=== PATIENT | female | born 1980 | race Two or more races ===

== ENCOUNTER 2024-04-09 10:30 | Emergency (ER) | payer MEDICARE, MEDICAID ==
[~2024-04-09] VITALS: Ht 162.6 cm; Wt 90.0 kg
[2024-04-09 11:47] LABS: Basophils # (auto) 0 10 ^3/uL (0-0.2); Basophils % (auto) 0.3 % (0.0-2.0); Eosinophils # (auto) 0.1 10 ^3/uL (0-0.8); Hematocrit 37.2 % (36.0-46.0); Hemoglobin 12.4 g/dL (12.2-16.2); Lymphocytes # (auto) 1.5 10 ^3/uL (0.4-5.4); Lymphocytes % (auto) 26.7 % (10.0-50.0); Mean Corpuscular Hemoglobin 28.2 pg (28.0-32.0); Mean Corpuscular Hgb Conc. 33.4 g/dL (32.0-36.0); Mean Corpuscular Volume 84.6 fL (80.0-100.0); Monocytes # (auto) 0.4 10 ^3/uL (0-1.3); Monocytes % (auto) 6.6 % (0.0-12.0); Neutrophils # (auto) 3.8 10 ^3/uL (1.6-8.6); Neutrophils % (auto) 65.4 % (37.0-80.0); Nucleated Red Blood Cells % 0.1 %; Platelet Count (auto) 200 10^3/uL (140-450); Red Cell Distribution Width 15.2 % (11.8-14.3); White Blood Cell 5.8 10^3/uL (4.4-10.8)
[2024-04-09 12:06] LABS: Alanine Aminotransferase 27 U/L (7-40); Albumin 4.2 g/dL (3.2-4.8); Alkaline Phosphatase 87 U/L (46-116); Anion Gap 5 (5-15); Aspartate Aminotransferase 17 U/L (13-40); BUN/Creatinine Ratio 14.1 (10.0-20.0); Bilirubin, Total 0.4 mg/dL (0.2-1.0); Blood Urea Nitrogen 10 mg/dL (9-23); Calcium 9.5 mg/dL (8.7-10.4); Carbon Dioxide 29 mmol/L (20-30); Chloride 102 mmol/L (98-107); Glucose 109 mg/dL (74-106); Potassium 3.6 mmol/L (3.5-5.1); Sodium 136 mmol/L (136-145); Total Protein 6.6 g/dL (5.7-8.2)
[2024-04-09 12:37] VITALS: PULSE 73; O2SAT 94
[2024-04-09 14:35] LABS: COVID19 ANTIGEN SOFIA FIA NEGATIVE (NEGATIVE)
[2024-04-09] MEDS: ALBUTEROL SULF 2.5 MG/0.5ML(0.5%) NEB SOLN NEB ONE (15:22)
[2024-04-09] MEDS ORDERED: ALBUAER3 IN (16:48)
[2024-04-09 17:05] VITALS: BP 100/51; PULSE 87; RESP 18; TEMP 98.4; O2SAT 96
== END 2024-04-09 17:45 | disposition home or self-care (01) ==
LOC: ER 10:30 → EDBD 10:30 → ER 17:44
DX: R06.00 Dyspnea, unspecified (principal); Z86.73 Personal history of transient ischemic attack (TIA), and cerebral infarction without residual deficits; Z20.822 Contact with and (suspected) exposure to COVID-19
CPT/HCPCS: 36415; 71045; 80053; 84484; 85025; 85379; 87426; 94640

== ENCOUNTER 2024-12-22 14:36 | Emergency (ER) | payer MEDICARE, MEDICAID ==
[~2024-12-22] VITALS: Ht 162.6 cm; Wt 102.0 kg
[~2024-12-22 14:36] MED LIST: ALBUAER3 IN
--- NOTE | 2024-12-22 16:16 | ED.PDOC ---
General HPI Comments 44 y/o F, with PMHx of HTN, DM, HLD, and CVA presents to the ED for CC of dysuria. Patient states, she has been dysuria with associated burning upon urination x1day. Patient denies nausea, vomiting, fever, or back pain. No other symptoms or modifying factors present at this time. Chief Complaint: Urinary Time Seen by MD: 16:00 Reviewed notes: Nurses Notes, Medications, Allergies Allergies: Coded Allergies: NO KNOWN ALLERGIES (Unverified , 12/22/24) Home Meds Active Scripts Albuterol Sulfate (VENTOLIN MDI) 90 Mcg Ih, 90 MCG IN Q6HP PRN for 7 Days, #1 MCG Prov:ANASTACIO LUCAS MD 04/09/24 Information Source: Patient Mode of Arrival: Ambulatory Severity: Moderate Inability to void: None Timing: Days Duration: Since onset Prehospital treatment: None Onset: Spontaneous Symptoms: Dysuria History of: None Location: None Modifying factors: None associated signs and symptoms: Dysuria Past Medical History PAST MEDICAL HISTORY: CVA, DM, High Lipids, HTN Surgical History: , Tubal Ligation 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: 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 all ROUGH PLANER TENDER Hx Family History Family History: Unknown Social History Smoker: Non-Smoker Alcohol: Denies ETOH Use Drugs: Denies Drug Use Lives In: Skilled Nursing Constitutional: denies: chills, diaphoresis, fatigue, fever, malaise, sweats, weakness, others EENTM: denies: blurred vision, double vision, ear bleeding, ear discharge, ear drainage, ear pain, ear ringing, eye pain, eye redness, hearing loss, mouth pain, mouth swelling, nasal discharge, nose bleeding, nose congestion, nose pain, photophobia, tearing, throat pain, throat swelling, voice changes, others Respiratory: denies: cough, hemoptysis, orthopnea, SOB at rest, shortness of breath, SOB with excertion, stridor, wheezing, others Cardiovascular: denies: chest pain, dizzy spells, diaphoresis, Dyspnea on exertion, edema, irregular heart beat, left arm pain, lightheadedness, palpitations, PND, syncope, others Gastrointestinal: denies: abdomen distended, abdominal pain, blood streaked bowels, constipated, diarrhea, dysphagia, difficulty swallowing, hematemesis, melena, nausea, poor appetite, poor fluid intake, rectal bleeding, rectal pain, vomiting, others Genitourinary: reports: burning, dysuria; denies: abnormal vagina bleeding, dyspareunia, flank pain, frequency, hematuria, incontinence, pain, , vagina discharge, urgency, others Neurological: denies: dizziness, fainting, headache, left sided numbness, left sided weakness, numbness, paresthesia, pre-existing deficit, right sided numbness, right sided weakness, seizure, speech problems, tingling, tremors, weakness, others Musculoskeletal: denies: back pain, gout, joint pain, joint swelling, muscle pain, muscle stiffness, neck pain, others Integumetry: denies: bruises, change in color, change in hair/nails, dryness, laceration, lesions, lumps, rash, wounds, others Allergic/Immunocompromised: denies: Difficulty Healing, Frequent Infections, Hives, Itching, others Hematologic/Lymphatic: denies: anemia, blood clots, easy bleeding, easy bruising, swollen glands, others Endocrine: denies: excessive hunger, excessive sweating, excessive thirst, excessive urination, flushing, intolerance to cold, intolerance to heat, unexplained weight gain, unexplained weight loss, others Psychiatric: denies: anxiety, bipolar disorder, depression, hopeless, panic disorder, schizophrenia, sleepless, suicidal, others All Other Systems: Reviewed and Negative Physical Exam General Appearance: No Apparent Distress HEENT: Normal ENT Inspection, Pharynx Normal, TMs Normal Neck: Full Range of Motion, Non-Tender, Normal, Normal Inspection Respiratory: Chest Non-Tender, Lungs Clear, No Accessory Muscle Use, No Respiratory Distress, Normal Breath Sounds Cardiovascular: No Edema, No JVD, No Murmur, No Gallop, Normal Peripheral Pulses, Regular Rate/Rhythm Breast Exam: Deferred Gastrointestinal: No Organomegaly, Non Tender, No Pulsatile Mass, Normal Bowel Sounds, Soft Genitalia: Deferred Pelvic: Deferred Rectal: Deferred Extremities: No calf tenderness, Normal capillary refill, Normal inspection, Normal range of motion, Non-tender, No pedal edema Musculoskeletal : Apperance: Normal Neurologic: Alert, forest engineer II-XII nml as Tested, No Motor Deficits, Normal Affect, Normal Mood, No Sensory Deficits Cerebellar Function: Normal Reflexes: Normal Skin: Dry, Normal Color, Warm Lymphatic: No Adenopathy Was a procedure done? Was a procedure done?: No Differential Diagnosis Kidney stone (Female): Strain, Urinary obstruction, Urolithiasis Urinary Problem (Female): UTI, Vaginitis X-Ray, Labs, Meds, VS Vital Signs Date Time Temp Pulse Resp B/P (MAP) Pulse Ox O2 Delivery O2 Flow Rate FiO2 12/22/24 17:44 98.5 81 16 128/49 (75) 96 98.5 12/22/24 15:07 Room Air 0 12/22/24 15:07 98.2 85 12 101/53 (69) 95 98.2 Lab Test 12/22/24 15:08 Range/Units Urine Color Light-yellow Yellow Urine Clarity Clear Clear Urine pH 6.5 5.0-9.0 Urine Specific [place] 1.020 1.001-1.035 Urine Protein Negative Negative Urine Ketones Negative Negative Urine Blood Negative Negative /uL Urine Nitrite Negative Negative Urine Bilirubin Negative Negative Urine Urobilinogen Normal Negative mg/dL Urine Leukocyte Esterase Negative Negative /uL Urine RBC <1 0 - 4 /hpf Urine Microscopic WBC 1 0-5 /HPF Urine Squamous Epithelial Cells Few <5 /hpf Urine Bacteria None seen None Seen /hpf Urine Yeast (Budding) Occasional None Seen /hpf Urine Glucose 4+ H Normal mg/dL Urine Opiates Screen Neg NEGATIVE Urine Fentanyl Screen Neg NEGATIVE Urine Barbiturates Screen Neg NEGATIVE Urine Phencyclidine Screen Neg NEGATIVE Urine Amphetamines Screen Neg NEGATIVE Urine Benzodiazepines Screen Neg NEGATIVE Urine Cocaine Screen Neg NEGATIVE Urine Cannabinoids Screen Neg NEGATIVE UDS is negative The urine test is negative for infection The patient is being discharged The patient will return to the emergency department's the condition worsens Time of 1ST Reevaluation: 16:30 Reevaluation 1ST: Unchanged Patient Education/Counseling: Diagnosis, Treatment, Prognosis, Need For Follow Up Family Education/Counseling: No Family Present Departure 1 Departure Time of Disposition: 18:17 Impression: Primary Impression: Dysuria Disposition: 01 HOME / SELF CARE / HOMELESS Condition: Fair Discharged With: Self Critical Care Note Critical Care Time?: No Stability Stability form required: No Heart Score Heart Score: Heart Score Response (Comments) Value History N/A 0 EKG N/A 0 Age N/A 0 Risk Factors N/A 0 Troponin N/A 0 Total 0 I personally scribed for SUSI HI MD ([email or web address]) on 12/22/24 at 16:16. Electronically submitted by Christy Parker ([email or web address]). I personally scribed for SUSI HI MD ([email or web address]) on 12/22/24 at 16:16. Electronically submitted by Christy Parker ([email or web address]). SUSI HI MD December 22, 2024 16:16
[2024-12-22 17:11] LABS: Urine Bacteria None Seen /hpf (None Seen)
[2024-12-22 17:29] LABS: Urine Blood Negative /uL (Negative); Urine Budding Yeast OCCASIONAL /hpf (None Seen); Urine Clarity Clear (Clear); Urine Color Light-Yellow (Yellow); Urine Protein, UAD Negative (Negative); Urine Squamous Epithelial Cell FEW /hpf (<5); Urine Urobilinogen Normal (Negative); Urine WBC 1 /HPF (0-5); Urine pH 6.5 (5.0-9.0)
[2024-12-22 17:34] LABS: Amphetamine Screen, Urine Neg (NEGATIVE); Barbiturate Scree,Urine Neg (NEGATIVE); Benzodiazephine Screen, Urine Neg (NEGATIVE); Cannabinoid Screen, Urine Neg (NEGATIVE); Cocaine Screen, Urine Neg (NEGATIVE); Opiate Scree,Urine Neg (NEGATIVE); Phencyclidine Screen, Urine Neg (NEGATIVE)
[2024-12-22 17:44] VITALS: BP 128/49; PULSE 81; RESP 16; TEMP 98.5; O2SAT 96
== END 2024-12-22 18:34 | disposition home or self-care (01) ==
LOC: ER 14:47
DX: R30.0 Dysuria (principal); I10 Essential (primary) hypertension; E11.9 Type 2 diabetes mellitus without complications; E78.5 Hyperlipidemia, unspecified; Z98.51 Tubal ligation status; Z98.890 Other specified postprocedural states; Z79.899 Other long term (current) drug therapy
CPT/HCPCS: 80307; 81001

== ENCOUNTER 2025-01-05 13:37 | Emergency (ER) | payer MEDICARE, MEDICAID ==
[~2025-01-05] VITALS: Ht 165.1 cm; Wt 70.0 kg
--- NOTE | 2025-01-05 14:20 | ED.PDOC ---
PRICING INTERN HPI Comments 44 y.o female with PMHx of fibroids, HTN, thyroids disease, DM, and CVA, pr esents to the ED via EMS for a chief complaint of vaginal bleeding associated with suprapubic/pelvic pain x 1 day. Patient reports going through a total of 3 pads, no blood clots noted and described pain as sharp, non radiating. Patient reports similar pain in the past in which she was diagnosed with fibroids then but since has not been seen by PCP or PRICING INTERN for follow up. Patient mentions no longer having a menstrual cycle. Patient denies any fever, chills, nausea or vomiting. Chief Complaint: Vaginal Bleed Time Seen by MD: 14:10 Reviewed Notes: Nurses Notes, Lift Truck Mechanic Notes, Medications, Allergies Allergies: Coded Allergies: NO KNOWN ALLERGIES (Unverified , 12/22/24) Home Meds Active Scripts Albuterol Sulfate (VENTOLIN MDI) 90 Mcg Ih, 90 MCG IN Q6HP PRN for 7 Days, #1 MCG Prov:ANASTACIO LUCAS MD 04/09/24 Information Source: Patient Mode of Arrival: EMS Timing: Days (1) Severity: Moderate Vaginal Discharge: None Vaginal Lesions: None Vaginal Mass: None Onset Of Mass/Bleeding: Spontaneous Sexual Activity: Neither Last Consensual [place]: None Control: None Symptoms of Possible : None Associated Signs and Symptoms: Vaginal Bleeding, Sharp Past Medical History PAST MEDICAL HISTORY: CVA, DM, High Lipids, HTN Surgical History: , Tubal Ligation CERAMIST History: Denies all CERAMIST Hx Family History Family History: Unknown Social History Smoker: Non-Smoker Alcohol: Denies ETOH Use Drugs: Denies Drug Use Lives In: Senior Care Constitutional: denies: chills, diaphoresis, fatigue, fever, malaise, sweats, weakness, others EENTM: denies: blurred vision, double vision, ear bleeding, ear discharge, ear drainage, ear pain, ear ringing, eye pain, eye redness, hearing loss, mouth pain, mouth swelling, nasal discharge, nose bleeding, nose congestion, nose pain, photophobia, tearing, throat pain, throat swelling, voice changes, others Respiratory: denies: cough, hemoptysis, orthopnea, SOB at rest, shortness of breath, SOB with excertion, stridor, wheezing, others Cardiovascular: denies: chest pain, dizzy spells, diaphoresis, Dyspnea on exertion, edema, irregular heart beat, left arm pain, lightheadedness, palpitations, PND, syncope, others Gastrointestinal: denies: abdomen distended, abdominal pain, blood streaked bowels, constipated, diarrhea, dysphagia, difficulty swallowing, hematemesis, melena, nausea, poor appetite, poor fluid intake, rectal bleeding, rectal pain, vomiting, others Genitourinary: reports: abnormal vagina bleeding, pain; denies: burning, dyspareunia, dysuria, flank pain, frequency, hematuria, incontinence, , vagina discharge, urgency, others Neurological: denies: dizziness, fainting, headache, left sided numbness, left sided weakness, numbness, paresthesia, pre-existing deficit, right sided numbness, right sided weakness, seizure, speech problems, tingling, tremors, weakness, others Musculoskeletal: denies: back pain, gout, joint pain, joint swelling, muscle pain, muscle stiffness, neck pain, others Integumetry: denies: bruises, change in color, change in hair/nails, dryness, laceration, lesions, lumps, rash, wounds, others Allergic/Immunocompromised: denies: Difficulty Healing, Frequent Infections, Hives, Itching, others Hematologic/Lymphatic: denies: anemia, blood clots, easy bleeding, easy bruising, swollen glands, others Endocrine: denies: excessive hunger, excessive sweating, excessive thirst, excessive urination, flushing, intolerance to cold, intolerance to heat, unexplained weight gain, unexplained weight loss, others Psychiatric: denies: anxiety, bipolar disorder, depression, hopeless, panic disorder, schizophrenia, sleepless, suicidal, others All Other Systems: Reviewed and Negative Physical Exam General Appearance: No Apparent Distress, Obese HEENT: Normal ENT Inspection, Pharynx Normal, TMs Normal Neck: Full Range of Motion, Non-Tender, Normal, Normal Inspection Respiratory: Chest Non-Tender, Lungs Clear, No Accessory Muscle Use, No Respiratory Distress, Normal Breath Sounds Cardiovascular: No Edema, No JVD, No Murmur, No Gallop, Normal Peripheral Pulses, Regular Rate/Rhythm Breast Exam: Deferred Gastrointestinal: No Organomegaly, No Pulsatile Mass, Normal Bowel Sounds, Soft, Suprapubic, Tenderness Genitalia: Deferred Pelvic: Deferred Rectal: Deferred Extremities: No calf tenderness, Normal capillary refill, Normal inspection, Normal range of motion, Non-tender, No pedal edema Musculoskeletal : Apperance: Normal Neurologic: Alert, mill turner II-XII nml as Tested, No Motor Deficits, Normal Affect, Normal Mood, No Sensory Deficits Cerebellar Function: Normal Reflexes: Normal Skin: Dry, Normal Color, Warm Lymphatic: No Adenopathy Was a procedure done? Was a procedure done?: No Differential Diagnosis (CERAMIST) Vaginal Bleeding: Blood Loss Anemia, Hormonal, Menorrhagia, Other (fibroids ) X-Ray, Labs, Meds, VS Vital Signs Date Time Temp Pulse Resp B/P (MAP) Pulse Ox O2 Delivery O2 Flow Rate FiO2 01/05/25 13:52 98.6 92 16 139/88 (105) 97 98.6 Lab Test 01/05/25 14:35 Range/Units White Blood Count 7.3 4.4-10.8 10^3/uL Red Blood Count 4.74 4.0-5.20 10^6/uL Hemoglobin 13.6 12.2-16.2 g/dL Hematocrit 41.2 36.0-46.0 % Mean Corpuscular Volume 86.8 80.0-100.0 fL Mean Corpuscular Hemoglobin 28.7 28.0-32.0 pg Mean Corpuscular Hemoglobin Concent 33.1 32.0-36.0 g/dL Red Cell Distribution Width 15.3 H 11.8-14.3 % Platelet Count 195 140-450 10^3/uL Mean Platelet Volume 10.2 6.9-10.8 fL Neutrophils (%) (Auto) 72.3 37.0-80.0 % Lymphocytes (%) (Auto) 20.9 10.0-50.0 % Monocytes (%) (Auto) 4.9 0.0-12.0 % Eosinophils (%) (Auto) 1.1 0.0-7.0 % Basophils (%) (Auto) 0.8 0.0-2.0 % Neutrophils # (Auto) 5.3 1.6-8.6 10 ^3/uL Lymphocytes # (Auto) 1.5 0.4-5.4 10 ^3/uL Monocytes # (Auto) 0.4 0-1.3 10 ^3/uL Eosinophils # (Auto) 0.1 0-0.8 10 ^3/uL Basophils # (Auto) 0.1 0-0.2 10 ^3/uL Nucleated Red Blood Cells 0.0 % Beta HCG, Quantitative 0.4 L 1.5-4.2 mIU/mL Ultrasound of the pelvis shows: IMPRESSION: 1. Uterus measures 9.2 x 4.6 cm 2. Endometrium measures 7 mm 3. Right ovary not visualized The quantitative hCG is negative The CBC is within normal limits The patient did think that she had fibroid tumors but it is negative The patient will follow up with the primary care doctor The patient will return to the emergency department's the condition worsens. Images Reviewed?: Images reviewed and evaluated by me Time of 1ST Reevaluation: 14:16 Reevaluation 1ST: Unchanged Patient Education/Counseling: Diagnosis, Treatment, Prognosis, Need For Follow Up Family Education/Counseling: No Family Present Departure 1 Departure Time of Disposition: 15:29 Impression: Primary Impression: Abnormal vaginal bleeding Additional Impression: Menorrhagia Qualified Codes: N92.1 - Excessive and frequent menstruation with irregular cycle Disposition: 01 HOME / SELF CARE / HOMELESS Condition: Fair Discharged With: Self Critical Care Note Critical Care Time?: No Stability Stability form required: No I personally scribed for SUSI HI MD ([email or web address]) on 01/05/25 at 14:19. Electronically submitted by Maty Bernal ([facility]). SUSI HI MD January 05, 2025 14:19
[2025-01-05 14:50] LABS: Basophils # (auto) 0.1 10 ^3/uL (0-0.2); Basophils % (auto) 0.8 % (0.0-2.0); Eosinophils # (auto) 0.1 10 ^3/uL (0-0.8); Eosinophils % (auto) 1.1 % (0.0-7.0); Hematocrit 41.2 % (36.0-46.0); Hemoglobin 13.6 g/dL (12.2-16.2); Lymphocytes # (auto) 1.5 10 ^3/uL (0.4-5.4); Lymphocytes % (auto) 20.9 % (10.0-50.0); Mean Corpuscular Hemoglobin 28.7 pg (28.0-32.0); Mean Corpuscular Hgb Conc. 33.1 g/dL (32.0-36.0); Mean Corpuscular Volume 86.8 fL (80.0-100.0); Monocytes # (auto) 0.4 10 ^3/uL (0-1.3); Monocytes % (auto) 4.9 % (0.0-12.0); Neutrophils # (auto) 5.3 10 ^3/uL (1.6-8.6); Neutrophils % (auto) 72.3 % (37.0-80.0); Platelet Count (auto) 195 10^3/uL (140-450); Red Blood Cells 4.74 10^6/uL (4.0-5.20); Red Cell Distribution Width 15.3 % (11.8-14.3); White Blood Cell 7.3 10^3/uL (4.4-10.8)
--- NOTE | 2025-01-05 15:16 | DVH ---
INDICATION: pain and bleeding TECHNIQUE: Multiple real-time grayscale transabdominal sonographic images along with color and duplex Doppler of the uterus and ovaries were obtained. COMPARISON: None FINDINGS: The uterus measures 9.2 x 4.4 x 4.6 cm cm. The endometrial stripe measures 0.7 cm. The right ovary not visualized. The left ovary measures 2.8 by 2.3 x 1.6 cm cm. Subsequent color and duplex Doppler interrogation of the ovaries demonstrated symmetric vascular flow to both ovaries, though this does not exclude the possibility of torsion due to the dual blood suppl y. IMPRESSION: 1. Uterus measures 9.2 x 4.6 cm 2. Endometrium measures 7 mm 3. Right ovary not visualized
[2025-01-05 15:45] VITALS: BP 129/70; PULSE 94; RESP 16; TEMP 98.4; O2SAT 96
== END 2025-01-05 15:50 | disposition home or self-care (01) ==
LOC: EDBD 13:37 → ER 13:51
DX: N92.0 Excessive and frequent menstruation with regular cycle (principal); N93.9 Abnormal uterine and vaginal bleeding, unspecified; E11.9 Type 2 diabetes mellitus without complications; I10 Essential (primary) hypertension; E78.5 Hyperlipidemia, unspecified; Z86.73 Personal history of transient ischemic attack (TIA), and cerebral infarction without residual deficits; Z98.890 Other specified postprocedural states; Z98.51 Tubal ligation status
CPT/HCPCS: 36415; 76856; 84702; 85025

== ENCOUNTER 2025-01-19 11:55 | Inpatient (IN) | payer MEDICARE, MEDICAID ==
[~2025-01-19] VITALS: Ht 162.6 cm; Wt 99.1 kg
[2025-01-19] MEDS: SODIUM CHLORIDE 0.9% 1,000 ML IV ONE (12:53)
[2025-01-19] MEDS: ONDANSETRON HCL 4 MG/2 ML VIAL IV ONE (12:53)
[2025-01-19 13:09] LABS: Basophils # (auto) 0 10 ^3/uL (0-0.2); Basophils % (auto) 0.2 % (0.0-2.0); Eosinophils # (auto) 0 10 ^3/uL (0-0.8); Eosinophils % (auto) 0.1 % (0.0-7.0); Hematocrit 41.5 % (36.0-46.0); Hemoglobin 13.8 g/dL (12.2-16.2); Lymphocytes # (auto) 0.9 10 ^3/uL (0.4-5.4); Lymphocytes % (auto) 6.6 % (10.0-50.0); Mean Corpuscular Hemoglobin 29.1 pg (28.0-32.0); Mean Corpuscular Hgb Conc. 33.3 g/dL (32.0-36.0); Mean Corpuscular Volume 87.3 fL (80.0-100.0); Monocytes # (auto) 0.5 10 ^3/uL (0-1.3); Monocytes % (auto) 4.1 % (0.0-12.0); Neutrophils # (auto) 11.7 10 ^3/uL (1.6-8.6); Platelet Count (auto) 230 10^3/uL (140-450); Red Blood Cells 4.75 10^6/uL (4.0-5.20); White Blood Cell 13.1 10^3/uL (4.4-10.8)
--- NOTE | 2025-01-19 13:18 | ED.PDOC ---
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 Patient reports on having diarrhea with nausea which started this morning, patient stated on having lower abdominal pain with nausea while using the restroom. Patient notes on feeling weak as well as feeling she is going to pass out. Denies chills, fever, /V, SOB, CP. No other associated symptoms, modifiers, recent injuries or sick contacts present at this time. 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 TUTOR Hx Family History Family History: Reviewed,noncontributory to illness, Unknown Social History Smoker: Non-Smoker Alcohol: Denies ETOH Use Drugs: Denies Drug Use Lives In: Detention Constitutional: reports: weakness; denies: chills, diaphoresis, fatigue, fever, malaise, sweats, others EENTM: denies: blurred vision, double vision, ear bleeding, ear discharge, ear drainage, ear pain, ear ringing, eye pain, eye redness, hearing loss, mouth pain, mouth swelling, nasal discharge, nose bleeding, nose congestion, nose pain, photophobia, tearing, throat pain, throat swelling, voice changes, others Respiratory: denies: cough, hemoptysis, orthopnea, SOB at rest, shortness of breath, SOB with excertion, stridor, wheezing, others Cardiovascular: denies: chest pain, dizzy spells, diaphoresis, Dyspnea on exertion, edema, irregular heart beat, left arm pain, lightheadedness, palpitations, PND, syncope, others Gastrointestinal: reports: diarrhea, nausea; denies: abdomen distended, abdominal pain, blood streaked bowels, constipated, dysphagia, difficulty swallowing, hematemesis, melena, poor appetite, poor fluid intake, rectal bleeding, rectal pain, vomiting, others Genitourinary: denies: abnormal vagina bleeding, burning, dyspareunia, dysuria, flank pain, frequency, hematuria, incontinence, pain, , vagina discharge, urgency, others Neurological: denies: dizziness, fainting, headache, left sided numbness, left sided weakness, numbness, paresthesia, pre-existing deficit, right sided numbness, right sided weakness, seizure, speech problems, tingling, tremors, weakness, others Musculoskeletal: denies: back pain, gout, joint pain, joint swelling, muscle pain, muscle stiffness, neck pain, others Integumetry: denies: bruises, change in color, change in hair/nails, dryness, laceration, lesions, lumps, rash, wounds, others Allergic/Immunocompromised: denies: Difficulty Healing, Frequent Infections, Hives, Itching, others Hematologic/Lymphatic: denies: anemia, blood clots, easy bleeding, easy bruising, swollen glands, others Endocrine: denies: excessive hunger, excessive sweating, excessive thirst, excessive urination, flushing, intolerance to cold, intolerance to heat, unexplained weight gain, unexplained weight loss, others Psychiatric: denies: anxiety, bipolar disorder, depression, hopeless, panic disorder, schizophrenia, sleepless, suicidal, others All Other Systems: Reviewed and Negative Physical Exam General Appearance: No Apparent Distress, Normal HEENT: Normal ENT Inspection, Pharynx Normal, TMs Normal Neck: Full Range of Motion, Non-Tender, Normal, Normal Inspection Respiratory: Chest Non-Tender, Lungs Clear, No Accessory Muscle Use, No Respiratory Distress, Normal Breath Sounds Cardiovascular: No Edema, No JVD, No Murmur, No Gallop, Normal Peripheral Pulses, Regular Rate/Rhythm Breast Exam: Deferred Gastrointestinal: No Organomegaly, Non Tender, No Pulsatile Mass, Normal Bowel Sounds, Soft Genitalia: Deferred Pelvic: Deferred Rectal: Deferred Extremities: No calf tenderness, Normal capillary refill, Normal inspection, Normal range of motion, Non-tender, No pedal edema Musculoskeletal : Apperance: Normal Neurologic: Alert, women's activities adviser II-XII nml as Tested, No Motor Deficits, Normal Affect, Normal Mood, No Sensory Deficits Cerebellar Function: Normal Reflexes: Normal Skin: Dry, Normal Color, Warm Lymphatic: No Adenopathy Was a procedure done? Was a procedure done?: No Differential Dx Considerations may include: Infectious etiology, viral syndrome, dehydration, generalized weakness X-Ray, Labs, Meds, VS Vital Signs Date Time Temp Pulse Resp B/P (MAP) Pulse Ox O2 Delivery O2 Flow Rate FiO2 01/19/25 12:05 Room Air* 0 21 01/19/25 12:04 98.9 74 18 138/58 (84) 96 98.9 01/19/25 12:04 98.9 74 18 138/58 (84) 96 98.9 Lab Test 01/19/25 13:31 01/19/25 12:56 01/19/25 12:46 Range/Units Sodium Level 142 136-145 mmol/L Potassium Level 3.7 3.5-5.1 mmol/L Chloride Level 105 98-107 mmol/L Carbon Dioxide Level 25 20-31 mmol/L Anion Gap 12 5-15 Blood Urea Nitrogen 13 9-23 mg/dL Creatinine 0.77 0.550-1.02 mg/dL Glomerular Filtration Rate Calc 98 >90 mL/min BUN/Creatinine Ratio 16.9 10.0-20.0 Serum Glucose 121 H 74-106 mg/dL Calcium Level 9.9 8.7-10.4 mg/dL Urine Color Yellow Yellow Urine Clarity Clear Clear Urine pH 5.0 5.0-9.0 Urine Specific [place] 1.034 1.001-1.035 Urine Protein Negative Negative Urine Ketones Negative Negative Urine Blood Negative Negative /uL Urine Nitrite Negative Negative Urine Bilirubin Negative Negative Urine Urobilinogen Normal Negative mg/dL Urine Leukocyte Esterase Negative Negative /uL Urine RBC 4 0 - 4 /hpf Urine Microscopic WBC < 1 0-5 /HPF Urine Squamous Epithelial Cells Few <5 /hpf Urine Bacteria None seen None Seen /hpf Urine Glucose 4+ H Normal mg/dL White Blood Count 13.1 H 4.4-10.8 10^3/uL Red Blood Count 4.75 4.0-5.20 10^6/uL Hemoglobin 13.8 12.2-16.2 g/dL Hematocrit 41.5 36.0-46.0 % Mean Corpuscular Volume 87.3 80.0-100.0 fL Mean Corpuscular Hemoglobin 29.1 28.0-32.0 pg Mean Corpuscular Hemoglobin Concent 33.3 32.0-36.0 g/dL Red Cell Distribution Width 15.0 H 11.8-14.3 % Platelet Count 230 140-450 10^3/uL Mean Platelet Volume 11.0 H 6.9-10.8 fL Neutrophils (%) (Auto) 89.0 H 37.0-80.0 % Lymphocytes (%) (Auto) 6.6 L 10.0-50.0 % Monocytes (%) (Auto) 4.1 0.0-12.0 % Eosinophils (%) (Auto) 0.1 0.0-7.0 % Basophils (%) (Auto) 0.2 0.0-2.0 % Neutrophils # (Auto) 11.7 H 1.6-8.6 10 ^3/uL Lymphocytes # (Auto) 0.9 0.4-5.4 10 ^3/uL Monocytes # (Auto) 0.5 0-1.3 10 ^3/uL Eosinophils # (Auto) 0 0-0.8 10 ^3/uL Basophils # (Auto) 0 0-0.2 10 ^3/uL Nucleated Red Blood Cells 0.0 % Current Medications Medications (Trade) Dose Ordered Sig/Casey Route Start Time Stop Time Status Last Admin Sodium Chloride 1,000 ml @ 1,000 mls/hr Q1H ONCE IV 01/19/25 12:30 01/19/25 13:29 DC 01/19/25 12:53 Ondansetron HCl (Zofran) 4 mg ONCE ONCE IV 01/19/25 12:30 01/19/25 12:31 DC 01/19/25 12:53 Time of 1ST Reevaluation: 13:30 Reevaluation 1ST: Unchanged Patient Education/Counseling: Diagnosis, Treatment, Prognosis Family Education/Counseling: No Family Present Departure 1 Departure Time of Disposition: 15:07 (Patient with a worsening weakness and near syncopal episode. Patient's workup is concerning for a likely viral gastroenteritis enteritis causing dehydration. We will admit patient for further workup and expert consultation) Impression: Primary Impression: Near syncope Additional Impressions: Dehydration Diarrhea Qualified Codes: R19.7 - Diarrhea, unspecified Disposition: 09 ADMITTED INPATIENT Admit to: Med Surg Condition: Serious Critical Care Note Critical Care Time?: No Stability Stability form required: No I personally scribed for MAINOR WATTS MD ([email or web address]) on 01/19/25 at 13:18. Electronically submitted by Suraj Su ([email or web address]). MAINOR WATTS MD Jan 19, 2025 13:18
[2025-01-19 13:43] LABS: Urine Bacteria None Seen /hpf (None Seen)
[2025-01-19 13:57] LABS: Urine Blood Negative /uL (Negative); Urine Clarity Clear (Clear); Urine Color Yellow (Yellow); Urine Protein, UAD Negative (Negative); Urine Specific Gravity 1.034 (1.001-1.035); Urine Squamous Epithelial Cell FEW /hpf (<5); Urine Urobilinogen Normal (Negative); Urine WBC < 1 /HPF (0-5)
[2025-01-19 14:29] LABS: Chloride 105 mmol/L (98-107); Potassium 3.7 mmol/L (3.5-5.1); Sodium 142 mmol/L (136-145)
[2025-01-19 14:30] LABS: Anion Gap 12 (5-15); Carbon Dioxide 25 mmol/L (20-31)
[2025-01-19 14:31] LABS: Calcium 9.9 mg/dL (8.7-10.4)
[2025-01-19 14:35] LABS: BUN/Creatinine Ratio 16.9 (10.0-20.0); Blood Urea Nitrogen 13 mg/dL (9-23)
[2025-01-19 14:38] LABS: Glucose 121 mg/dL (74-106)
[2025-01-19] MEDS: MAALOX PLUS or MAALOX 30 ML PO ONE (15:24)
[2025-01-19] MEDS: FAMOTIDINE 20 MG TAB PO ONE (15:24)
[2025-01-19] MEDS ORDERED: SENN-105 PO (15:55)
[2025-01-19] MEDS ORDERED: ASPI-325 PO (15:55)
[2025-01-19] MEDS ORDERED: HAL5T PO (15:55)
[2025-01-19] MEDS ORDERED: MULT-1056 PO (15:55)
[2025-01-19] MEDS ORDERED: AMLO1TAB23 PO (15:55)
[2025-01-19] MEDS ORDERED: FENO54TA4 PO (15:55)
[2025-01-19] MEDS ORDERED: FURO20TA4 PO (15:55)
[2025-01-19] MEDS ORDERED: BENZ1TAB6 PO (15:55)
[2025-01-19] MEDS ORDERED: LOSA-534 PO (15:55)
[2025-01-19] MEDS ORDERED: CITA-77 PO (15:55)
[2025-01-19] MEDS ORDERED: LORA-483 PO (15:55)
[2025-01-19] MEDS ORDERED: ATOR40TA52 PO (15:55)
[2025-01-19] MEDS ORDERED: LEVO150T10 PO (15:55)
[2025-01-19] MEDS ORDERED: DESM0.2T17 PO (15:55)
[2025-01-19] MEDS ORDERED: QUET400T13 PO (15:55)
[2025-01-19] MEDS ORDERED: EMPA1TAB PO (15:55)
[2025-01-19] MEDS ORDERED: METF-370 PO (15:55)
[2025-01-19] MEDS ORDERED: CLON0.1T PO (15:55)
--- NOTE | 2025-01-19 15:58 | DVH ---
EXAM: XR Chest, 1 View CLINICAL INDICATION: near syncope TECHNIQUE: Frontal view of the chest. COMPARISON: XY CHEST PORTABLE on DOS: 04/09/24 FINDINGS: LUNGS AND PLEURAL SPACES: Unremarkable. No consolidation. No pneumothorax. HEART: Unremarkable. No cardiomegaly. MEDIASTINUM: Unremarkable. Normal mediastinal contour. BONES/JOINTS: Unremarkable. No acute fracture. OTHER FINDINGS: . IMPRESSION: No acute cardiopulmonary process.
[2025-01-19] MEDS ORDERED: DEXTROSE (50%) 50ML SYRG IV PRN (16:15)
--- NOTE | 2025-01-19 16:26 | DVHHP2 ---
History of Present Illness Reason for Visit: Diarrhea History of Present Illness Azra Samaniego is a 44-year-old female with past medical history of diabetes, CVA, hypertension, hyperlipidemia, hypothyroidism, and diabetes, who came to the hospital for diarrhea. Patient states she woke up this morning diarrhea, nausea, vomiting, and epigastric pain. Patient is a poor historian. I called her mother and she stated she didn't know any medical history. She stated she has lived in a board and care for years because she can not take care of her. Cardiovascular: HTN, hyperipidemia [employer]MENT: CVA Endocrine: Diabetes, Hypothyroidism Past Surgical History: (x 1), Tubal Ligation Smoke: No ALCOHOL: none Drugs: None Lives: Other (board and care facility) Review of Systems Constitutional: No: Fever, Chills, Sweats, Weakness, Malaise, Other Eyes: No: Pain, Vision change, Conjunctivae inflammation, Eyelid inflammation, Other, Redness ENT: No: Ear pain, Ear discharge, Nose pain, Nose discharge, Nose congestion, Mouth pain, Mouth swelling, Throat pain, Throat swelling, Other Respiratory: No: Cough, Dry, Shortness of breath, SOB with excertion, Wheezing, Hemoptysis, Pleuritic Pain, Sputum, Wheezing, Other Cardiovascular: No: Chest Pain, Palpitations, Orthopnea, Paroxysmal Noc. Dyspnea, Edema, Lt Headedness, Other Gastrointestinal: Nausea, Vomiting, Abdominal Pain, Diarrhea; No: Constipation, Melena, Hematochezia, Other Genitourinary: No Dysuria, No Frequency, No Incontinence, No Hematuria, No Retention, No Other Musculoskeletal: No: other, neck pain, shoulder pain, arm pain, back pain, hand pain, leg pain, foot pain Skin: No: Rash, Lesions, Jaundice, Bruising, Other Neurological: No: Weakness, Numbness, Incoordination, Change in speech, Confusion, Seizures, Other Allergies: Coded Allergies: NO KNOWN ALLERGIES (Unverified , 12/22/24) Medications Current Medications Medications Dose Ordered Sig/Casey Route Start Time Stop Time Status Last Admin Dose Admin Acetaminophen/ Hydrocodone Bitart 1 tab Q4HP PRN PO 01/19/25 16:00 UNV Ondansetron HCl 4 mg Q4HP PRN IV 01/19/25 16:00 UNV Acetaminophen 650 mg Q6HP PRN PO 01/19/25 16:00 UNV Exam Vital Signs Vital Signs Date Time Temp Pulse Resp B/P (MAP) Pulse Ox O2 Delivery O2 Flow Rate FiO2 01/19/25 12:05 Room Air* 0 21 01/19/25 12:04 98.9 74 18 138/58 (84) 96 98.9 General Appearance: Alert, Oriented X3, Cooperative, Other (mentally delayed) HEENT: Atraumatic, PERRLA, Mucous membr. moist/pink Respiratory: Clear to auscultation, Normal air movement Cardiovascular: Regular rate, Normal S1 Abdominal: Normal bowel sounds, Soft, Other (states her stomach feels upset) Extremities: No clubbing Skin: No rashes, No breakdown Neuro: Normal gait Psych/Mental Status: Other (mentally delayed) Labs/Xrays Labs Test 01/19/25 13:31 01/19/25 12:56 01/19/25 12:46 Range/Units Sodium Level 142 136-145 mmol/L Potassium Level 3.7 3.5-5.1 mmol/L Chloride Level 105 98-107 mmol/L Carbon Dioxide Level 25 20-31 mmol/L Anion Gap 12 5-15 Blood Urea Nitrogen 13 9-23 mg/dL Creatinine 0.77 0.550-1.02 mg/dL Glomerular Filtration Rate Calc 98 >90 mL/min BUN/Creatinine Ratio 16.9 10.0-20.0 Serum Glucose 121 H 74-106 mg/dL Calcium Level 9.9 8.7-10.4 mg/dL Urine Color Yellow Yellow Urine Clarity Clear Clear Urine pH 5.0 5.0-9.0 Urine Specific [place] 1.034 1.001-1.035 Urine Protein Negative Negative Urine Ketones Negative Negative Urine Blood Negative Negative /uL Urine Nitrite Negative Negative Urine Bilirubin Negative Negative Urine Urobilinogen Normal Negative mg/dL Urine Leukocyte Esterase Negative Negative /uL Urine RBC 4 0 - 4 /hpf Urine Microscopic WBC < 1 0-5 /HPF Urine Squamous Epithelial Cells Few <5 /hpf Urine Bacteria None seen None Seen /hpf Urine Glucose 4+ H Normal mg/dL White Blood Count 13.1 H 4.4-10.8 10^3/uL Red Blood Count 4.75 4.0-5.20 10^6/uL Hemoglobin 13.8 12.2-16.2 g/dL Hematocrit 41.5 36.0-46.0 % Mean Corpuscular Volume 87.3 80.0-100.0 fL Mean Corpuscular Hemoglobin 29.1 28.0-32.0 pg Mean Corpuscular Hemoglobin Concent 33.3 32.0-36.0 g/dL Red Cell Distribution Width 15.0 H 11.8-14.3 % Platelet Count 230 140-450 10^3/uL Mean Platelet Volume 11.0 H 6.9-10.8 fL Neutrophils (%) (Auto) 89.0 H 37.0-80.0 % Lymphocytes (%) (Auto) 6.6 L 10.0-50.0 % Monocytes (%) (Auto) 4.1 0.0-12.0 % Eosinophils (%) (Auto) 0.1 0.0-7.0 % Basophils (%) (Auto) 0.2 0.0-2.0 % Neutrophils # (Auto) 11.7 H 1.6-8.6 10 ^3/uL Lymphocytes # (Auto) 0.9 0.4-5.4 10 ^3/uL Monocytes # (Auto) 0.5 0-1.3 10 ^3/uL Eosinophils # (Auto) 0 0-0.8 10 ^3/uL Basophils # (Auto) 0 0-0.2 10 ^3/uL Nucleated Red Blood Cells 0.0 % EXAM: XR Chest, 1 View FINDINGS: LUNGS AND PLEURAL SPACES: Unremarkable. No consolidation. No pneumothorax. HEART: Unremarkable. No cardiomegaly. MEDIASTINUM: Unremarkable. Normal mediastinal contour. BONES/JOINTS: Unremarkable. No acute fracture. OTHER FINDINGS: . IMPRESSION: No acute cardiopulmonary process. Assessment/Plan Assessment/Plan Assessment: Dehydration, Near syncope, Hypertension, Hyperlipidemia, Hypothyroidism, Plan: Admit to Med-Surg: IV hydration, IV antibiotics, Clear Liquid diet, Accu checks Q AC&HS with sliding scale, Home medications reconciled, Plan discussed with: Patient My Orders Orders - YRN BOURGEOISP Procedure Category Date Status Time Admit ADMIT 01/19/25 Transmitted 15:46 Code Status CODE 01/19/25 Transmitted 15:46 Hydrocodone-Acet PHA 01/19/25 Logged 5/325mg Tab ([place] 16:00 Ondansetron Hcl PHA 01/19/25 Logged (Zofran) 16:00 Complete Blood Count LAB 01/20/25 Verified 04:00 Comprehensive LAB 01/20/25 Verified Metabolic Panel 04:00 Condition: Serious ALEXANDRA 01/19/25 In Process 15:46 Acetaminophen Tablet PHA 01/19/25 Logged (Tylenol Tablet) 16:00 Clear Liq Diet DIET 01/19/25 Transmitted Dinner Aspirin Enteric PHA 01/20/25 Verified Coated Tablet 10:00 Citalopram Tablet PHA 01/20/25 Verified (Celexa Tablet) 10:00 Clonidine Hcl Tablet PHA 01/19/25 Verified (Catapres Tablet) 22:00 Empagliflozin PHA 01/20/25 Verified (Jardiance) 10:00 Furosemide Tablet PHA 01/20/25 Verified (Lasix Tablet) 10:00 Haloperidol Tablet PHA 01/20/25 Verified (Haldol Tablet) 10:00 Loratadine Tablet PHA 01/20/25 Verified (Claritin Tablet) 10:00 Losartan Tablet PHA 01/19/25 Verified (Cozaar Tablet) 22:00 Multiple Vitamin PHA 01/20/25 Verified Tablet (Mvi Tab) 10:00 (Nf) Amlodipine PHA 01/20/25 Verified Besylate 10:00 (Nf) Atorvastatin PHA 01/20/25 Verified Calcium 10:00 (Nf) Benztropine PHA 01/19/25 Verified Mesylate 22:00 (Nf) Desmopressin PHA 01/20/25 Verified Acetate 10:00 (Nf) Fenofibrate PHA 01/20/25 Verified 10:00 (Nf) Levothyroxine PHA 01/20/25 Verified Sodium 10:00 (Nf) Quetiapine PHA 01/19/25 Verified Fumerate (Quetiapine 22:00 Date of Service: Jan 19, 2025 Billing Provider: YRN BOURGEOIS Common Visit Codes: [id number] INP/OBS CARE (MOD) YRN BOURGEOIS Jan 19, 2025 16:26
[2025-01-19] MEDS: ACCU-CHEK COMFORT CURVE STRIP VI SCH (16:57)
[2025-01-19] MEDS: InsuLIN REG 1unit/0.01ml Soln (100units/ml) SC SCH ×2 (17:12→22:00)
[2025-01-19] MEDS: HYDROcodone-ACET 5/325MG TAB PO PRN (19:39)
[2025-01-19] MEDS: ONDANSETRON HCL 4 MG/2 ML VIAL IV PRN (19:39)
[2025-01-19 20:24] VITALS: BP 147/82; PULSE 96; RESP 18; TEMP 99; O2SAT 96
[2025-01-19] MEDS ORDERED: PATIENTS OWN MEDICATION (Quetiapine Fumerate (Quetiapine Fumarate) 1 TAB) PO SCH (22:00)
[2025-01-19] MEDS ORDERED: PATIENTS OWN MEDICATION (Benztropine Mesylate 1 TAB) PO SCH (22:00)
[2025-01-19] MEDS: LOSARTAN POTASSIUM 50 MG TAB PO SCH (22:03)
[2025-01-19] MEDS: QUEtiapine FUMARATE 100 MG TAB PO SCH (22:04)
[2025-01-19] MEDS: cloNIDine HCL 0.1 MG TAB PO SCH (22:04)
[2025-01-19] MEDS: BENZTROPINE MESY 0.5 MG TAB PO SCH (22:04)
[2025-01-19] MEDS: ATORVASTATIN 20 MG TAB PO SCH (22:04)
[2025-01-19] MEDS: metroNIDAZOLE 500MG/100ML 100 ML IV SCH (22:06)
[2025-01-20] VITALS (7 sets, daily range): BP systolic 88–135; BP diastolic 52–75; PULSE 79–100; RESP 16–20; TEMP 98–98.6; O2SAT 92–98
[2025-01-20 04:29] LABS: Basophils # (auto) 0 10 ^3/uL (0-0.2); Basophils % (auto) 0.2 % (0.0-2.0); Eosinophils # (auto) 0.1 10 ^3/uL (0-0.8); Eosinophils % (auto) 0.7 % (0.0-7.0); Hematocrit 36.7 % (36.0-46.0); Hemoglobin 12.4 g/dL (12.2-16.2); Lymphocytes # (auto) 1.7 10 ^3/uL (0.4-5.4); Lymphocytes % (auto) 20.9 % (10.0-50.0); Mean Corpuscular Hemoglobin 29.4 pg (28.0-32.0); Mean Corpuscular Hgb Conc. 33.7 g/dL (32.0-36.0); Mean Corpuscular Volume 87.2 fL (80.0-100.0); Monocytes # (auto) 0.6 10 ^3/uL (0-1.3); Monocytes % (auto) 7.8 % (0.0-12.0); Neutrophils # (auto) 5.7 10 ^3/uL (1.6-8.6); Neutrophils % (auto) 70.4 % (37.0-80.0); Platelet Count (auto) 167 10^3/uL (140-450); Red Blood Cells 4.21 10^6/uL (4.0-5.20); White Blood Cell 8.1 10^3/uL (4.4-10.8)
[2025-01-20 04:41] LABS: Alanine Aminotransferase 9 U/L (7-40); Alkaline Phosphatase 77 U/L (46-116); Anion Gap 8 (5-15); BUN/Creatinine Ratio 14.3 (10.0-20.0); Bilirubin, Total 0.5 mg/dL (0.2-1.0); Blood Urea Nitrogen 8 mg/dL (9-23); Calcium 8.8 mg/dL (8.7-10.4); Carbon Dioxide 25 mmol/L (20-31); Chloride 106 mmol/L (98-107); Glucose 120 mg/dL (74-106); Potassium 3.5 mmol/L (3.5-5.1); Sodium 139 mmol/L (136-145); Total Protein 6.1 g/dL (5.7-8.2)
[2025-01-20 05:08] LABS: Aspartate Aminotransferase 9 U/L (13-40)
[2025-01-20] MEDS: LEVOTHYROXINE SODIUM 50 MCG TAB PO SCH (06:42)
[2025-01-20] MEDS: LEVOTHYROXINE SODIUM 100 MCG TAB PO SCH (06:42)
[2025-01-20] MEDS: ASPirin-EC 81 mg tab PO SCH (08:22)
[2025-01-20] MEDS: CITALOPRAM HYDROBR 20 MG TAB PO SCH (08:22)
[2025-01-20] MEDS: EMPAGLIFLOZIN 10 MG TAB PO SCH (08:23)
[2025-01-20] MEDS: HALOPERIDOL 5 MG TAB PO SCH (08:23)
[2025-01-20] MEDS: LORATADINE 10 MG TAB PO SCH (08:23)
[2025-01-20] MEDS: amLODIPine BESYLATE 5 MG TAB PO SCH (08:24)
[2025-01-20] MEDS: FUROSEMIDE 20 MG TAB PO SCH (08:24)
[2025-01-20] MEDS: MULTIPLE VITAMIN TAB PO SCH (08:27)
[2025-01-20] MEDS ORDERED: PATIENTS OWN MEDICATION (Amlodipine Besylate 1 TAB) PO SCH (10:00)
[2025-01-20] MEDS ORDERED: PATIENTS OWN MEDICATION (Atorvastatin Calcium 1 TAB) PO SCH (10:00)
[2025-01-20] MEDS ORDERED: PATIENTS OWN MEDICATION (Levothyroxine Sodium 1 TAB) PO SCH (10:00)
--- NOTE | 2025-01-20 16:34 | DVHPN2 ---
Subjective in bed doing well Reviewed: H&P, Labs Changes from previous H/P or p: No Changes Eyes: No Pain, No Vision change, No Conjunctivae inflammation, No Eyelid inflammation, No Other, No Redness ENT: No Ear pain, No Ear discharge, No Nose pain, No Nose discharge, No Nose congestion, No Mouth pain, No Mouth swelling, No Throat pain, No Throat swelling, No Other Cardiovascular: No Chest Pain, No Palpitations, No Orthopnea, No Paroxysmal Noc. Dyspnea, No Edema, No Lt Headedness, No Other Respiratory: No Cough, No Dry, No Shortness of breath, No SOB with excertion, No Wheezing, No Hemoptysis, No Pleuritic Pain, No Sputum, No Other Gastrointestinal: Nausea, Vomiting, Abdominal Pain, Diarrhea; No Constipation, No Melena, No Hematochezia, No Other Genitourinary: No Dysuria, No Frequency, No Incontinence, No Hematuria, No Retention, No Other Musculoskeletal: No other, No neck pain, No shoulder pain, No arm pain, No back pain, No hand pain, No leg pain, No foot pain Skin: No Rash, No Lesions, No Jaundice, No Bruising, No Other Objective Vitals Vital Signs Date Time Temp Pulse Resp B/P (MAP) Pulse Ox O2 Delivery O2 Flow Rate FiO2 01/20/25 13:03 98.3 90 18 120/65 (83) 98 98.3 01/20/25 08:48 Nasal Cannula* 2 28 Intake/Output Intake and Output 01/20/25 07:00 Intake Total 100 ml Balance 100 ml Intake IV Total 100 ml General Appearance: Alert, Oriented X3 Lungs: Clear to auscultation Cardiovascular: Regular rate, Normal S1, Normal S2 Medications Current Medications Medications Dose Ordered Sig/Casey Route Start Time Stop Time Status Last Admin Dose Admin Acetaminophen/ Hydrocodone Bitart 1 tab Q4HP PRN PO 01/19/25 16:00 01/20/25 16:00 1 TAB Ondansetron HCl 4 mg Q4HP PRN IV 01/19/25 16:00 01/19/25 19:39 4 MG Acetaminophen 650 mg Q6HP PRN PO 01/19/25 16:00 Aspirin 81 mg DAILY PO 01/20/25 10:00 01/20/25 08:22 81 MG Citalopram Hydrobromide 20 mg DAILY PO 01/20/25 10:00 01/20/25 08:22 20 MG Clonidine HCl 0.1 mg BID PO 01/19/25 22:00 01/19/25 22:04 0.1 MG Empaglifozin 10 mg DAILY PO 01/20/25 10:00 01/20/25 08:23 10 MG Furosemide 20 mg DAILY PO 01/20/25 10:00 01/20/25 08:24 20 MG Haloperidol 5 mg DAILY PO 01/20/25 10:00 01/20/25 08:23 5 MG Loratadine 10 mg DAILY PO 01/20/25 10:00 01/20/25 08:23 10 MG Losartan Potassium 50 mg BID PO 01/19/25 22:00 01/19/25 22:03 50 MG Multivitamins 1 tab DAILY PO 01/20/25 10:00 01/20/25 08:27 1 TAB Patient Own Medication 1 tab DAILY PO 01/20/25 10:00 UNV Patient Own Medication 1 tab DAILY PO 01/20/25 10:00 UNV Patient Own Medication 1 tab BID PO 01/19/25 22:00 UNV Patient Own Medication 1 tab DAILY PO 01/20/25 10:00 Patient Own Medication 1 tab DAILY PO 01/20/25 10:00 Patient Own Medication 1 tab DAILY PO 01/20/25 10:00 UNV Patient Own Medication 1 tab HS PO 01/19/25 22:00 UNV Diagnostic Test (Pha) 1 strip ACHS 01/19/25 17:00 01/20/25 11:25 1 STRIP Insulin Human Regular HS SC 01/19/25 22:00 Insulin Human Regular AC SC 01/19/25 17:00 01/20/25 11:26 2 UNITS Dextrose 50 ml UD PRN IV 01/19/25 16:15 Amlodipine Besylate 10 mg DAILY PO 01/20/25 10:00 Atorvastatin Calcium 40 mg HS PO 01/19/25 22:00 01/19/25 22:04 40 MG Benztropine Mesylate 1 mg BID PO 01/19/25 22:00 01/20/25 08:23 1 MG Metronidazole 100 ml @ 100 mls/hr Q8HR IV 01/19/25 22:00 01/20/25 14:40 100 MLS/HR Levothyroxine Sodium 100 mcg QAM PO 01/20/25 07:00 01/20/25 06:42 100 MCG Levothyroxine Sodium 50 mcg QAM PO 01/20/25 07:00 01/20/25 06:42 50 MCG Quetiapine Fumarate 400 mg HS PO 01/19/25 22:00 01/19/25 22:04 400 MG Laboratory Results Laboratory Tests 01/20/25 04:00 Chemistry Test 01/20/25 04:00 Albumin 4.0 g/dL (3.2-4.8) Calcium Level 8.8 mg/dL (8.7-10.4) Total Protein 6.1 g/dL (5.7-8.2) LFT Test 01/20/25 04:00 Alanine Aminotransferase (ALT) 9 U/L (7-40) Alkaline Phosphatase 77 U/L (46-116) Aspartate Amino Transferase (AST) 9 U/L (13-40) L Total Bilirubin 0.5 mg/dL (0.2-1.0) Urinalysis Test 01/19/25 12:56 Urine Color Yellow (Yellow) Urine Clarity Clear (Clear) Urine pH 5.0 (5.0-9.0) Urine Specific [place] 1.034 (1.001-1.035) Urine Protein Negative (Negative) Urine Ketones Negative (Negative) Urine Blood Negative /uL (Negative) Urine Nitrite Negative (Negative) Urine Bilirubin Negative (Negative) Urine Urobilinogen Normal mg/dL (Negative) Urine Leukocyte Esterase Negative /uL (Negative) Urine RBC 4 /hpf (0 - 4) Urine Microscopic WBC < 1 /HPF (0-5) Urine Squamous Epithelial Cells Few /hpf (<5) Urine Bacteria None seen /hpf (None Seen) Urine Glucose 4+ mg/dL (Normal) H Assessment/Plan Assessment/Plan Dehydration, Near syncope, Hypertension, Hyperlipidemia, Hypothyroidism, Continue IVF Repeat BMP tomorrow Plan discussed with: Patient Date of Service: Jan 20, 2025 Billing Provider: JACEK SOLER MD Common Visit Codes: [id number] INP/OBS CARE(HIGH) JACEK SOLER MD Jan 20, 2025 16:33
[2025-01-20] MEDS: SODIUM CHLORIDE 0.9% 1,000 ML IV SCH (17:26)
[2025-01-20] MEDS: ACETAMINOPHEN 325 MG TAB PO PRN (18:21)
[2025-01-21 01:00] VITALS: BP 109/53; PULSE 67; RESP 18; TEMP 98.3; O2SAT 94
[2025-01-21 05:00] VITALS: BP 104/63; PULSE 98; RESP 18; TEMP 97.9; O2SAT 91
[2025-01-21 08:00] VITALS: PULSE 104; RESP 20; O2SAT 97
[2025-01-21 08:56] VITALS: BP 114/66; PULSE 104; RESP 20; TEMP 98.8; O2SAT 95
--- NOTE | 2025-01-21 12:25 | DVHDS2 ---
Discharge Summary Date of Admission Jan 19, 2025 at 15:46 Date of Discharge: Jan 21, 2025 Labs/Diagnostic Data: Laboratory Results Test 01/21/25 11:33 01/20/25 04:00 01/19/25 12:56 POC Glucose 89 mg/dl (70-106) White Blood Count 8.1 10^3/uL (4.4-10.8) Red Blood Count 4.21 10^6/uL (4.0-5.20) Hemoglobin 12.4 g/dL (12.2-16.2) Hematocrit 36.7 % (36.0-46.0) Mean Corpuscular Volume 87.2 fL (80.0-100.0) Mean Corpuscular Hemoglobin 29.4 pg (28.0-32.0) Mean Corpuscular Hemoglobin Concent 33.7 g/dL (32.0-36.0) Red Cell Distribution Width 15.0 % (11.8-14.3) Platelet Count 167 10^3/uL (140-450) Mean Platelet Volume 10.2 fL (6.9-10.8) Neutrophils (%) (Auto) 70.4 % (37.0-80.0) Lymphocytes (%) (Auto) 20.9 % (10.0-50.0) Monocytes (%) (Auto) 7.8 % (0.0-12.0) Eosinophils (%) (Auto) 0.7 % (0.0-7.0) Basophils (%) (Auto) 0.2 % (0.0-2.0) Neutrophils # (Auto) 5.7 10 ^3/uL (1.6-8.6) Lymphocytes # (Auto) 1.7 10 ^3/uL (0.4-5.4) Monocytes # (Auto) 0.6 10 ^3/uL (0-1.3) Eosinophils # (Auto) 0.1 10 ^3/uL (0-0.8) Basophils # (Auto) 0 10 ^3/uL (0-0.2) Nucleated Red Blood Cells 0.0 % Sodium Level 139 mmol/L (136-145) Potassium Level 3.5 mmol/L (3.5-5.1) Chloride Level 106 mmol/L (98-107) Carbon Dioxide Level 25 mmol/L (20-31) Anion Gap 8 (5-15) Blood Urea Nitrogen 8 mg/dL (9-23) Creatinine 0.56 mg/dL (0.550-1.02) Glomerular Filtration Rate Calc 116 mL/min (>90) BUN/Creatinine Ratio 14.3 (10.0-20.0) Serum Glucose 120 mg/dL (74-106) Calcium Level 8.8 mg/dL (8.7-10.4) Total Bilirubin 0.5 mg/dL (0.2-1.0) Aspartate Amino Transferase (AST) 9 U/L (13-40) Alanine Aminotransferase (ALT) 9 U/L (7-40) Alkaline Phosphatase 77 U/L (46-116) Total Protein 6.1 g/dL (5.7-8.2) Albumin 4.0 g/dL (3.2-4.8) Urine Color Yellow (Yellow) Urine Clarity Clear (Clear) Urine pH 5.0 (5.0-9.0) Urine Specific [place] 1.034 (1.001-1.035) Urine Protein Negative (Negative) Urine Ketones Negative (Negative) Urine Blood Negative /uL (Negative) Urine Nitrite Negative (Negative) Urine Bilirubin Negative (Negative) Urine Urobilinogen Normal mg/dL (Negative) Urine Leukocyte Esterase Negative /uL (Negative) Urine RBC 4 /hpf (0 - 4) Urine Microscopic WBC < 1 /HPF (0-5) Urine Squamous Epithelial Cells Few /hpf (<5) Urine Bacteria None seen /hpf (None Seen) Urine Glucose 4+ mg/dL (Normal) Other Laboratory Tests 01/20/25 04:00 Brief Hx & Hospital Course: 44-year-old female with past medical history of diabetes, CVA, hypertension, hyperlipidemia, hypothyroidism, and diabetes, who came to the hospital for diarrhea. Patient states she woke up this morning diarrhea, nausea, vomiting, and epigastric pain. Patient is a poor historian. I called her mother and she stated she didn't know any medical history. She stated she has lived in a board and care for years because she can not take care of her. leukocytosis resolved with no antibiotics Condition at Discharge: Good Final Diagnosis/Problems List leukocytosis reactive dehydration Discharge Disposition: Home Discharge Instruct/Medications Diet: Regular Activity: No Restrictions, As Tolerated Follow Up/Referral: PC in 7 days Medications: same home medications Discharge Statement: "Patient was advised to return to the ER or call 911 if any headaches, dizziness, shortness of breath, chest pain, abdominal pain, bleeding, fevers, or worsening of medical condition. Patient was counseled about treatment plan, medications, possible side effects, patientverbalized understanding. All questions were answered to the best of my ability. This discharge took greater then 30 minutes in planning, reviewing documentation, counseling the patient, and discussing with other team members." ASSESSMENT ASSESSMENT Assessment leukocytosis reactive dehydration Date of Service: Jan 21, 2025 Billing Provider: JACEK SOLER MD Common Visit Codes: [id number] DISCH DAY >30min JACEK SOLER MD Jan 21, 2025 12:25
[2025-01-21 13:00] VITALS: BP 104/60; PULSE 74; RESP 19; TEMP 99; O2SAT 99
== END 2025-01-21 14:30 | disposition home or self-care (01) | DRG 641 ==
LOC: EDBD 11:55 → ER 11:55 → OVERFLOW 15:46 → EAST 01-20 20:47
PROVIDERS: ADMIT Hospitalist; ATTEND Hospitalist
DX: E86.0 Dehydration (principal); I10 Essential (primary) hypertension; E78.5 Hyperlipidemia, unspecified; E03.9 Hypothyroidism, unspecified; D72.829 Elevated white blood cell count, unspecified; E11.9 Type 2 diabetes mellitus without complications; Z98.891 History of uterine scar from previous surgery; Z98.51 Tubal ligation status; Z86.73 Personal history of transient ischemic attack (TIA), and cerebral infarction without residual deficits; Z79.899 Other long term (current) drug therapy
CPT/HCPCS: 36415; 71045; 80048; 80053; 81001; 82962; 85025; 96361; 96374; G0378; J1815; J2405; J3490

== ENCOUNTER 2025-02-21 18:05 | Emergency (ER) | payer MEDICARE, MEDICAID ==
[~2025-02-21] VITALS: Ht 172.7 cm; Wt 100.0 kg
[~2025-02-21 18:05] MED LIST changes: +AMLO1TAB23 PO; +ASPI-325 PO; +ATOR40TA52 PO; +BENZ1TAB6 PO; +CITA-77 PO; +CLON0.1T PO; +DESM0.2T17 PO; +EMPA1TAB PO; +FENO54TA4 PO; +FURO20TA4 PO; +HAL5T PO; +LEVO150T10 PO; +LORA-483 PO; +LOSA-534 PO; +METF-370 PO; +MULT-1056 PO; +QUET400T13 PO; +SENN-105 PO
--- NOTE | 2025-02-21 19:07 | ED.PDOC ---
History of Present Illness HPI Comments 44 year old female came to ER due to headaches. Patient resides at a [facility] and [facility] facility, has history of CVA with residuals. Has been complaining of frontal headaches all day. Noted also to have nausea, vomiting and shortness of breath. Patient states she feels very dehydrated. Chief Complaint: Headache Time Seen by MD: 19:06 Primary Care Provider: UNKNOWN Reviewed Notes: Nurses Notes Allergies: Coded Allergies: NO KNOWN ALLERGIES (Unverified , 12/22/24) Home Meds Active Scripts Acetaminophen (Acetaminophen Er) 650 Mg Tab, 650 MG PO TIDPRN PRN for 5 Days, #15 TAB Prov:SERGO SCHULTZ MD 02/22/25 Albuterol Sulfate (VENTOLIN MDI) 90 Mcg Ih, 90 MCG IN Q6HP PRN for 7 Days, #1 MCG Prov:ANASTACIO LUCAS MD 04/09/24 Reported Medications Multiple Vitamin (Multivitamin) 1 Tab Tab, 1 TAB PO DAILY 01/19/25 Benztropine Mesylate (Benztropine Mesylate) 1 Mg Tab, 1 TAB PO BID 01/19/25 Aspirin (Aspirin Low Dose) 81 Mg Tab, 1 TAB PO DAILY 01/19/25 Quetiapine Fumerate (QUETIAPINE FUMARATE) 400 Mg Tab, 1 TAB PO HS 01/19/25 Haloperidol (Haldol) 5 Mg Tb, 1 TAB PO DAILY 01/19/25 Citalopram Hydrobromide (Citalopram Hydrobromide) 20 Mg Tab, 1 TAB PO DAILY 01/19/25 Senna (Senna) 8.6 Mg Tab, 1 PO DAILY 01/19/25 Loratadine (CLARITIN TABLET) 10 Mg Tb, 1 TAB PO DAILY 01/19/25 Atorvastatin Calcium (ATORVASTATIN CALCIUM) 40 Mg Tab, 1 TAB PO DAILY 01/19/25 Furosemide (Furosemide) 20 Mg Tab, 1 TAB PO DAILY 01/19/25 Clonidine Hydrochloride (Clonidine Hcl) 0.1 Mg Tab, 1 TAB PO BID 01/19/25 Losartan Potassium (Losartan Potassium) 50 Mg Tab, 1 TAB PO BID 01/19/25 Amlodipine Besylate (Amlodipine Besylate) 10 Mg Tab, 1 TAB PO DAILY 01/19/25 Desmopressin Acetate (Desmopressin Acetate) 0.2 Mg Tab, 1 TAB PO DAILY 01/19/25 Empagliflozin (Jardiance) 10 Mg Tab, 1 TAB PO DAILY 01/19/25 Fenofibrate (Fenofibrate) 54 Mg Tab, 1 TAB PO DAILY 01/19/25 Levothyroxine Sodium (Levothyroxine Sodium) 150 Mcg Tab, 1 TAB PO DAILY 01/19/25 Metformin Hydrochloride (Metformin Hcl) 500 Mg Tab, 1 TAB PO DAILY 01/19/25 Information Source: Patient Mode of Arrival: EMS Severity: Moderate Timing: Hours Duration: Since onset Review of Systems REVIEW OF SYSTEMS: General: No fever, no chills, or fatigue HEENT: No sore throat, no earache, no congestion, no neck pain. Cardiac: No chest pain. No palpitations. Lungs: No shortness of breath, no cough. GI: No nausea, no vomiting, no diarrhea, no constipation, no abdominal pain : No dysuria, frequency, or urgency. No hematuria. Musculoskeletal: No joint pain , no joint swelling, no extremity edema. Skin: No rash, no itching. Neuro: (+) headache, no dizziness, no weakness Vital Signs Vital Signs Date Time Temp Pulse Resp B/P (MAP) Pulse Ox O2 Delivery O2 Flow Rate FiO2 02/22/25 06:00 86 18 140/80 (100) 94 02/21/25 23:56 98.1 98.1 02/21/25 23:55 Room Air* 0 21 Physical Exam PHYSICAL EXAM: General: Awake, alert and oriented. No acute distress. Skin: Skin in warm, dry and intact. Appropriate color for ethnicity. HEENT: The head is normocephalic and atraumatic. Conjunctivae are clear without exudates or hemorrhage. Sclera is non-icteric. EOM are intact. No signs of nystagmus. Eyelids are normal in appearance without swelling or lesions. Oral mucosa is pink and moist Neck: The neck is supple with normal range of motion. No JVD. Cardiac: Heart rate and rhythm are normal. No murmurs, gallops, or rubs are auscultated. Respiratory: No signs of respiratory distress. Lung sounds are clear in all lobes bilaterally without rales, rhonchi, or wheezes. Abdominal: Abdomen is soft, non-tender without distention, guarding or rigidity. Bowel sounds are present and normoactive in all four quadrants. Extremities: Upper and lower extremities are atraumatic in appearance without deformity or edema. Neurological: The patient is awake, alert and oriented to person, place, and time with normal speech. Speech is slow There is mild residual facial asymmetry. Strength in upper extremities intact mild right upper extremity deficits. Patient able to ambulate using walker. Past Medical History PAST MEDICAL HISTORY: CVA, DM, High Lipids, HTN Surgical History: , Tubal Ligation FISHER TRAWL NET History: Denies all FISHER TRAWL NET Hx Family History Family History: Reviewed,noncontributory to illness Social History Smoker: Non-Smoker Alcohol: Denies ETOH Use Drugs: Denies Drug Use Lives In: Assisted Care Was a procedure done? Was a procedure done?: No Differential Dx Considerations may include: Differential diagnoses considered include but are not limited to temporal arteritis, acute angle closure glaucoma, encephalitis, bacterial meningitis, carbon monoxide poisoning, posttraumatic headache, SAH, subdural hematoma, cervical artery dissection, venous sinus thrombosis, CVA, migraine headache, cluster headache, tension headache, TMJ disorder, frontal sinusitis, cervical spondylosis, intracranial mass, pituitary apoplexy. X-Ray, Labs, Meds, VS Vital Signs Date Time Temp Pulse Resp B/P (MAP) Pulse Ox O2 Delivery O2 Flow Rate FiO2 02/22/25 06:00 86 18 140/80 (100) 94 02/22/25 04:00 79 16 122/66 (84) 94 02/22/25 02:36 75 16 114/65 02/22/25 02:35 75 14 114/65 (81) 95 02/22/25 01:30 80 16 125/66 02/21/25 23:56 98.1 76 18 111/64 (80) 96 98.1 02/21/25 23:55 Room Air* 0 21 02/21/25 21:43 86 16 99 Room Air* 0 21 02/21/25 21:43 82 16 121/86 (98) 99 02/21/25 18:43 98.3 82 18 112/74 (87) 95 98.3 Lab Test 02/21/25 19:06 Range/Units White Blood Count 8.4 4.4-10.8 10^3/uL Red Blood Count 4.91 4.0-5.20 10^6/uL Hemoglobin 14.2 12.2-16.2 g/dL Hematocrit 43.1 36.0-46.0 % Mean Corpuscular Volume 87.8 80.0-100.0 fL Mean Corpuscular Hemoglobin 29.0 28.0-32.0 pg Mean Corpuscular Hemoglobin Concent 33.0 32.0-36.0 g/dL Red Cell Distribution Width 14.6 H 11.8-14.3 % Platelet Count 229 140-450 10^3/uL Mean Platelet Volume 10.4 6.9-10.8 fL Neutrophils (%) (Auto) 68.4 37.0-80.0 % Lymphocytes (%) (Auto) 22.6 10.0-50.0 % Monocytes (%) (Auto) 6.6 0.0-12.0 % Eosinophils (%) (Auto) 2.1 0.0-7.0 % Basophils (%) (Auto) 0.3 0.0-2.0 % Neutrophils # (Auto) 5.7 1.6-8.6 10 ^3/uL Lymphocytes # (Auto) 1.9 0.4-5.4 10 ^3/uL Monocytes # (Auto) 0.5 0-1.3 10 ^3/uL Eosinophils # (Auto) 0.2 0-0.8 10 ^3/uL Basophils # (Auto) 0 0-0.2 10 ^3/uL Nucleated Red Blood Cells 0.0 % Sodium Level 140 136-145 mmol/L Potassium Level 3.7 3.5-5.1 mmol/L Chloride Level 105 98-107 mmol/L Carbon Dioxide Level 26 20-31 mmol/L Anion Gap 9 5-15 Blood Urea Nitrogen 9 9-23 mg/dL Creatinine 0.72 0.550-1.02 mg/dL Glomerular Filtration Rate Calc 106 >90 mL/min BUN/Creatinine Ratio 12.5 10.0-20.0 Serum Glucose 106 74-106 mg/dL Calcium Level 9.5 8.7-10.4 mg/dL Magnesium Level 1.6 1.6-2.6 mg/dL Total Bilirubin 0.3 0.2-1.0 mg/dL Aspartate Amino Transferase (AST) 14 13-40 U/L Alanine Aminotransferase (ALT) 12 7-40 U/L Alkaline Phosphatase 92 46-116 U/L B-Type Natriuretic Peptide 7.03 0-100 pg/mL Total Protein 7.3 5.7-8.2 g/dL Albumin 4.9 H 3.2-4.8 g/dL Thyroid Stimulating Hormone (TSH) 2.83 0.55-4.78 uIU/mL Current Medications Medications (Trade) Dose Ordered Sig/Casey Route Start Time Stop Time Status Last Admin Ondansetron HCl (Zofran) 4 mg ONCE ONCE IV 02/22/25 01:15 02/22/25 01:16 DC 02/22/25 01:23 Morphine Sulfate 1 mg ONCE ONCE IV 02/22/25 01:15 02/22/25 01:16 DC 02/22/25 01:30 Acetaminophen (Tylenol Tablet) 650 mg ONCE ONCE PO 02/22/25 04:15 02/22/25 04:16 DC 02/22/25 04:14 EXAM: CT HEAD WITHOUT CONTRAST INDICATION: Severe, new onset chisholm, ass. vomiting, hx cva TECHNIQUE: CT of the head without intravenous contrast. Radiation Dose Information: CT Dose: CTDI volume is 60.97 mGy. Dose-length product is 1079.13 mGy*cm The dose indicators for CT are the volume Computed Tomography (CT) Dose Index (CTDIvol) and the Dose Length Product (DLP), and are measured in units of mGy and mGy-cm, respectively. These indicators are not patient dose, but values generated from the CT scanner acquisition factors. The report includes radiation exposure data for exposures received during this examination. COMPARISON: None FINDINGS: There is no evidence of acute intracranial hemorrhage, extra-axial collection, mass effect, midline shift, herniation or hydrocephalus. The ventricles, sulci and cisterns are age appropriate. The torres-white differentiation is intact. Patchy periventricular and subcortical white matter hypoattenuation is nonspecific but may be related to small vessel ischemic disease. The visualized paranasal sinuses and mastoid air cells are clear. The surrounding soft tissues and osseous structures are unremarkable. IMPRESSION: 1. No acute intracranial abnormality. Time of 1ST Reevaluation: 19:03 Reevaluation 1ST: Unchanged Patient Education/Counseling: Need For Follow Up Family Education/Counseling: No Family Present SEPSIS Sepsis Screen Date sepsis recognized/suspect: Feb 21, 2025 Time Sepsis recognized/suspect: 1807 Recent Procedure: No On Antibiotic Therapy: No Respiratory Rate >20: No Heart Rate >90: No Temp<36 C (96.8 F) or >38.3 C: No SBP <90 or MAP <65 mmHG: No New Acute Mental Status Change: No Is the patient on CPAP, BIPAP,: No Physician Orders Urinalysis (02/21/25 18:56) Head Without Contrast (02/21/25 18:56) Vital Signs Date Time Temp Pulse Resp B/P (MAP) Pulse Ox O2 Delivery O2 Flow Rate FiO2 02/22/25 06:00 86 18 140/80 (100) 94 02/22/25 04:00 79 16 122/66 (84) 94 02/22/25 02:36 75 16 114/65 02/22/25 02:35 75 14 114/65 (81) 95 02/22/25 01:30 80 16 125/66 02/21/25 23:56 98.1 76 18 111/64 (80) 96 98.1 02/21/25 23:55 Room Air* 0 21 02/21/25 21:43 86 16 99 Room Air* 0 21 02/21/25 21:43 82 16 121/86 (98) 99 02/21/25 18:43 98.3 82 18 112/74 (87) 95 98.3 Laboratory Tests Test 02/21/25 19:06 White Blood Count 8.4 10^3/uL (4.4-10.8) Departure 1 Departure Time of Disposition: 23:11 Impression: Primary Impression: Headache Disposition: HOME / SELF CARE / HOMELESS Condition: Stable Additional Instructions: ED DISCHARGE INSTRUCTIONS Instructions: Please read all instructions provided in this packet carefully. Although you have been discharged from the Emergency Department, this does not mean that you have a "clean bill of health". No definitive diagnosis for your symptoms has been made today. It is possible that you are in the process of developing a serious illness. This is why you must return to the ED without fail if any new or worsening symptoms (especially if your symptoms include chest pain, trouble breathing, abdominal pain, fever, headache, confusion, trouble seeing, or trouble walking) It is also very important that you see a primary care provider (PCP) within the next 3-5 days to follow up. If you are unable to get an appointment, return to the ED for re-evaluation. Overview Headaches have many possible causes. Most headaches aren't a sign of a more serious problem, and they will get better on their own. Home treatment may help you feel better faster. The doctor has checked you carefully, but problems can develop later. If you notice any problems or new symptoms, get medical treatment right away. Follow-up care is a chapman part of your treatment and safety. Be sure to make and go to all appointments, and call your doctor if you are having problems. It's also a good idea to know your test results and keep a list of the medicines you take. How can you care for yourself at home? Rest in a quiet, dark room until your headache is gone. Close your eyes and try to relax or go to sleep. Don't watch TV or read. Put a cold, moist cloth or cold pack on the painful area for 10 to 20 minutes at a time. Put a thin cloth between the cold pack and your skin. Use a warm, moist towel or a heating pad set on low to relax tight shoulder and neck muscles. Have someone gently massage your neck and shoulders. Take pain medicines exactly as directed. If the doctor gave you a prescription medicine for pain, take it as prescribed. If you are not taking a prescription pain medicine, ask your doctor if you can take an [id number] medicine. Do not ignore new symptoms that occur with a headache, such as a fever, weakness or numbness, vision changes, or confusion. These may be signs of a more serious problem. To prevent headaches Keep a headache diary so you can figure out what triggers your headaches. Avoiding triggers may help you prevent headaches. Record when each headache began, how long it lasted, and what the pain was like (throbbing, aching, s tabbing, or dull). Write down any other symptoms you had with the headache, such as nausea, flashing lights or dark spots, or sensitivity to bright light or loud noise. Note if the headache occurred near your period. List anything that might have triggered the headache, such as certain foods (chocolate, cheese, wine) or odors, smoke, bright light, stress, or lack of sleep. Find healthy ways to deal with stress. Headaches are most common during or right after stressful times. Take time to relax before and after you do something that has caused a headache in the past. Try to keep your muscles relaxed by keeping good posture. Check your jaw, face, neck, and shoulder muscles for tension, and try relaxing them. When sitting at a desk, change positions often, and stretch for 30 seconds each hour. Get plenty of sleep and exercise. Eat regularly. Long periods without food can trigger a headache. Limit caffeine by not drinking too much coffee, tea, or soda. But don't quit caffeine suddenly, because that can also give you headaches. Reduce eyestrain from computers by blinking frequently and looking away from the computer screen every so often. Make sure you have proper eyewear and that your monitor is set up properly, about an arm's length away. When should you call for help? Call 911 anytime you think you may need emergency care. For example, call if: You have signs of a stroke. These may include: Sudden numbness, paralysis, or weakness in your face, arm, or leg, especially on only one side of your body. Sudden vision changes. Sudden trouble speaking. Sudden confusion or trouble understanding simple statements. Sudden problems with walking or balance. A sudden, severe headache that is different from past headaches. Call your doctor now or seek immediate medical care if: You have a fever and a stiff neck. You have new nausea and vomiting, or you cannot keep down food or fluids. Your headache gets much worse. Watch closely for changes in your health, and be sure to contact your doctor if: Your headaches get worse, happen more often, or change in some way. You have new symptoms. Your life is disrupted by your headaches. For example, you often miss work, school, or other activities. You do not get better as expected. e-Prescriptions Acetaminophen (Acetaminophen Er) 650 Mg Tab 650 MG PO TIDPRN PRN for 5 Days, #15 TAB Prov: SERGO SCHULTZ MD 02/22/25 Comments 44-year-old female presents with headache. No focal neurological symptoms. Neuro exam is benign. Pt is nontoxic. VSS. CT head negative for acute process. Patient's headache improved with treatment in the emergency department. Based on history and normal neurological exam I have low suspicion for intracranial tumor, intracranial bleed, meningitis, temporal arteritis, glauc stacia, CO poisoning. Most likely patient has benign headache, recommend rest, hydration, and OTC pain control. - I reviewed the following notes from the pt's past medical encounters: N/A The following tests were ordered, and results were reviewed by me: (See diagnostic results section) The following test were independently interpreted by me: N/A Additional information was gathered from interviewing the following independent historians: N/A I reviewed and agreed with the following test results read by other providers: CT head I discussed treatments and results with patient Decision regarding hospitalization or escalation of hospital level of care: Risks and benefits of admission for further treatment of patient's condition was considered however due to patient's stable condition patient will be discharged to follow up closely or return to care for worsening of condition or inability to follow up. Critical Care Note Critical Care Time?: No Stability Stability form required: No Heart Score Heart Score: Heart Score Response (Comments) Value History N/A 0 EKG N/A 0 Age N/A 0 Risk Factors N/A 0 Troponin N/A 0 Total 0 I personally scribed for SERGO SCHULTZ MD ([email or web address]) on 02/21/25 at 19:07. Electronically submitted by Deandre Stallings ([email or web address]). I personally scribed for SERGO SCHULTZ MD ([email or web address]) on 02/21/25 at 19:36. Electronically submitted by Deandre Stallings ([email or web address]). I personally scribed for SERGO SCHULTZ MD ([email or web address]) on 02/21/25 at 20:46. Electronically submitted by Deandre Stallings ([email or web address]). I personally scribed for SERGO SCHULTZ MD ([email or web address]) on 02/21/25 at 22:49. Electronically submitted by Deandre Stallings ([email or web address]). SERGO SCHULTZ MD Feb 21, 2025 19:07
[2025-02-21 19:56] LABS: Hematocrit 43.1 % (36.0-46.0); Hemoglobin 14.2 g/dL (12.2-16.2); Mean Corpuscular Hemoglobin 29.0 pg (28.0-32.0); Mean Corpuscular Volume 87.8 fL (80.0-100.0); Nucleated Red Blood Cells % 0.0 %
[2025-02-21 20:05] LABS: Alanine Aminotransferase 12 U/L (7-40); Alkaline Phosphatase 92 U/L (46-116); Anion Gap 9 (5-15); BUN/Creatinine Ratio 12.5 (10.0-20.0); Calcium 9.5 mg/dL (8.7-10.4); Carbon Dioxide 26 mmol/L (20-31); Chloride 105 mmol/L (98-107); Glucose 106 mg/dL (74-106); Magnesium 1.6 mg/dL (1.6-2.6); Potassium 3.7 mmol/L (3.5-5.1); Sodium 140 mmol/L (136-145); Total Protein 7.3 g/dL (5.7-8.2)
[2025-02-21 20:07] LABS: Albumin 4.9 g/dL (3.2-4.8); Bilirubin, Total 0.3 mg/dL (0.2-1.0); Blood Urea Nitrogen 9 mg/dL (9-23)
--- NOTE | 2025-02-21 20:22 | DVH ---
EXAM: CT HEAD WITHOUT CONTRAST INDICATION: Severe, new onset chisholm, ass. vomiting, hx cva TECHNIQUE: CT of the head without intravenous contrast. Radiation Dose Information: CT Dose: CTDI volume is 60.97 mGy. Dose-length product is 1079.13 mGy*cm The dose indicators for CT are the volume Computed Tomography (CT) Dose Index (CTDIvol) and the Dose Length Product (DLP), and are measured in units of mGy and mGy-cm, respectively. These indicators are not patient dose, but values generated from the CT scanner acquisition factors. The report includes radiation exposure data for exposures received during this examination. COMPARISON: None FINDINGS: There is no evidence of acute intracranial hemorrhage, extra-axial collection, mass effect, midline s hift, herniation or hydrocephalus. The ventricles, sulci and cisterns are age appropriate. The torres-white differentiation is intact. Patchy periventricular and subcortical white matter hypoattenuation is nonspecific but may be related to small vessel ischemic disease. The visualized paranasal sinuses and mastoid air cells are clear. The surrounding soft tissues and osseous structures are unremarkable. IMPRESSION: 1. No acute intracranial abnormality.
[2025-02-21] MEDS: ACETAMINOPHEN IV 1000 MG/100ML (10MG/ML) IV ONE (21:32)
[2025-02-21] MEDS: SODIUM CHLORIDE 0.9% 1,000 ML IV ONE (21:32)
[2025-02-21] MEDS: KETOROLAC TROMETH 30 MG/ML 1ML VIAL IV ONE (21:32)
[2025-02-21 21:43] VITALS: PULSE 86; RESP 16; O2SAT 99
[2025-02-21 23:56] VITALS: TEMP 98.1
[2025-02-22] MEDS: ONDANSETRON HCL 4 MG/2 ML VIAL IV ONE (01:23)
[2025-02-22] MEDS: MORPHINE SULFATE INJ 2 MG/ml SYRG IV ONE (01:30)
[2025-02-22] MEDS: ACETAMINOPHEN 325 MG TAB PO ONE (04:14)
[2025-02-22 06:00] VITALS: BP 140/80; PULSE 86; RESP 18; O2SAT 94
[2025-02-22] MEDS ORDERED: ACET650T12 PO (06:05)
== END 2025-02-22 07:05 | disposition home or self-care (01) ==
LOC: ER 18:05 → EDBD 18:05 → ER 02-22 07:05
DX: R51.9 Headache, unspecified (principal); E11.9 Type 2 diabetes mellitus without complications; I10 Essential (primary) hypertension; E78.5 Hyperlipidemia, unspecified; Z86.73 Personal history of transient ischemic attack (TIA), and cerebral infarction without residual deficits; Z98.51 Tubal ligation status; Z79.899 Other long term (current) drug therapy; Z79.84 Long term (current) use of oral hypoglycemic drugs; Z79.890 Hormone replacement therapy; Z79.82 Long term (current) use of aspirin
CPT/HCPCS: 36415; 70450; 80053; 83735; 83880; 84443; 85025; 96361; 96374; 96375; 99285; J1885; J2270; J2405; J7030; J0131